=== PATIENT | female | born 1995 | race African-American/Black ===

== ENCOUNTER 2016-07-13 21:31 | Emergency (ER) | payer MEDICAID ==
--- NOTE | 2016-07-13 21:55 | ER Document Report ---
ED Medical Screen (RME) - General Stated Complaint: STOMACH PAIN Time seen by provider: 21:54 Mode of Arrival: Ambulatory Information source: Patient Notes: 21-year-old female complaining of low pelvic pain for 2 months. She developed urinary frequency and pain with urination for 2 days. No vaginal discharge or odor. No history of STDs. New sexual partner for 2 months. - Related Data Allergies/Adverse Reactions: latex [Latex] Allergy (Verified 09/09/11 23:30) Past Medical History - Immunizations Hx Diphtheria, Pertussis, Tetanus Vaccination: Yes Physical Exam - Vital signs Vitals: Temp Pulse Resp BP Pulse Ox 98.4 F 93 16 117/60 98 07/13/16 21:34 07/13/16 21:34 07/13/16 21:34 07/13/16 21:34 07/13/16 21:34 Course - Vital Signs Vital signs: Temp Pulse Resp BP Pulse Ox 98.4 F 93 16 117/60 98 07/13/16 21:34 07/13/16 21:34 07/13/16 21:34 07/13/16 21:34 07/13/16 21:34
[2016-07-13 22:23] LABS: AMORPHOUS SEDIMENT,URINE TRACE /HPF; APPEARANCE,URINE SLIGHTLY-CLOUDY; BILIRUBIN,URINE NEGATIVE (NEGATIVE); GLUCOSE, URINE NEGATIVE (NEGATIVE); KETONES,URINE NEGATIVE (NEGATIVE); LEUKOCYTE ESTERASE,URINE SMALL (NEGATIVE); NITRITE,URINE NEGATIVE (NEGATIVE); PROTEIN,URINE NEGATIVE (NEGATIVE); URINE SPECIFIC GRAVITY 1.018; UROBILINOGEN,URINE NEGATIVE mg/dL (<2.0)
[2016-07-13 23:08] LABS: ABSOLUTE EOSINOPHILS # (AUTO) 0.1 10^3/uL (0.0-0.6); ABSOLUTE LYMPHOCYTES (AUTO) 2.7 10^3/uL (0.5-4.7); ABSOLUTE MONOCYTES (AUTO) 0.5 10^3/uL (0.1-1.4); ABSOLUTE NEUT (AUTO) 6.2 10^3/uL (1.7-8.2); BASOPHILS % (AUTO) 0.4 % (0-2); EOSINOPHILS % (AUTO) 0.8 % (0-6); HEMATOCRIT 40.3 % (36.0-47.0); HEMOGLOBIN 13.2 g/dL (12.0-15.5); HGB HCT DIFFERENCE -0.7; LYMPHOCYTES % (AUTO) 27.9 % (13-45); MEAN CORPUSCULAR HEMOGLOBIN 31.4 pg (27.0-33.4); MEAN CORPUSCULAR HGB CONC 32.8 g/dL (32.0-36.0); MEAN CORPUSCULAR VOLUME 96 fl (80-97); MONOCYTES % (AUTO) 5.4 % (3-13); RED BLOOD COUNT 4.21 10^6/uL (3.72-5.28); RED CELL DISTRIBUTION WIDTH 13.3 % (11.5-14.0); SEGMENTED NEUTROPHILS % (AUTO) 65.5 % (42-78); WHITE BLOOD COUNT 9.5 10^3/uL (4.0-10.5)
[2016-07-13 23:25] LABS: ALANINE AMINOTRANSFERASE 26 U/L (9-52); ALBUMIN 4.4 g/dL (3.5-5.0); ALKALINE PHOSPHATASE 86 U/L (38-126); ANION GAP 11 (5-19); ASPARTATE AMINO TRANSFERASE 24 U/L (14-36); BILIRUBIN,TOTAL 0.5 mg/dL (0.2-1.3); BLOOD UREA NITROGEN 8 mg/dL (7-20); CARBON DIOXIDE 25 mmol/L (22-30); CHLORIDE 105 mmol/L (98-107); CREATININE RESULT 0.63 mg/dL (0.52-1.25); GLUCOSE 98 mg/dL (75-110); POTASSIUM 4.1 mmol/L (3.6-5.0); TOTAL PROTEIN 7.1 g/dL (6.3-8.2)
--- NOTE | 2016-07-14 00:22 | ER Document Report ---
ED General - General Chief Complaint: Lower Abdominal Pain Stated Complaint: STOMACH PAIN Mode of Arrival: Ambulatory Notes: Patient is a 21 year old female presents with complaints of abdominal pain. She says it's mild lower abdominal pains that have been ongoing for 2 months. She's had a new sexual partner last 2 months. No abnormal discharge. Some dysuria in the last 2 days. No fevers. No vomiting. No diarrhea. No other complaints at this time. She is otherwise healthy. TRAVEL OUTSIDE OF THE [place] IN LAST 30 DAYS: No - Related Data Allergies/Adverse Reactions: latex [Latex] Allergy (Verified 09/09/11 23:30) Past Medical History - General Information source: Patient - Social History Smoking Status: Unknown if Ever Smoked Frequency of alcohol use: None Drug Abuse: None Family History: Reviewed & Not Pertinent Patient has suicidal ideation: No Patient has homicidal ideation: No Renal/ Medical History: Denies: Hx Peritoneal Dialysis - Immunizations Hx Diphtheria, Pertussis, Tetanus Vaccination: Yes Review of Systems - Review of Systems Notes: My Normal Review Basic REVIEW OF SYSTEMS: CONSTITUTIONAL : Denies fever, chills, or sweats. Denies recent illness. CARDIOVASCULAR: Denies chest pain. RESPIRATORY: Denies cough, cold, or chest congestion. Denies shortness of breath, difficulty breathing, or wheezing. GASTROINTESTINAL: Mild lower abdominal pain. Denies nausea, vomiting, or diarrhea. Denies constipation. Last BM: GENITOURINARY: Denies difficulty urinating, painful urination, burning, frequency, or blood in urine. FEMALE GENITOURINARY: Denies vaginal bleeding, abnormal or irregular periods. MUSCULOSKELETAL: Denies neck or back pain or joint pain or swelling. SKIN: Denies rash or skin lesions. NEUROLOGICAL: Denies altered mental status or loss of consciousness. Denies headache. Denies weakness or paralysis or loss of use of either side. Denies problems with gait or speech. Denies sensory or motor loss. ALL OTHER SYSTEMS REVIEWED AND NEGATIVE. Physical Exam - Vital signs Vitals: Temp Pulse Resp BP Pulse Ox 98.4 F 93 16 117/60 98 07/13/16 21:34 07/13/16 21:34 07/13/16 21:34 07/13/16 21:34 07/13/16 21:34 - Notes Notes: General Appearance: Well nourished, alert, cooperative, no acute distress, no obvious discomfort. Vitals: reviewed, See vital signs table. Head: no swelling or tenderness to the head Eyes: PERRL, EOMI, Conjuctiva clear Mouth: No decreasd moisture Neck: Supple, no neck tenderness, No thyromegaly Lungs: No wheezing, No rales, No rhonci, No accessory muscle use, good air exchange bilaterally. Heart: Normal rate, Regular rythm, No murmur, no rub Abdomen: Normal BS, soft, No rigidity, No reproducible abdominal tenderness to palpation, No guarding, no rebound, no abdominal masses, no organomegaly Extremities: strength 5/5 in all extremities, good pulses in all extremities, no swelling or tenderness in the extremities, no edema. Skin: warm, dry, appropriate color, no rash Neuro: speech clear, oriented x 3, normal affect, responds appropriately to questions. Course - Vital Signs Vital signs: Temp Pulse Resp BP Pulse Ox 98.4 F 93 16 117/60 98 07/13/16 21:53 07/13/16 21:53 07/13/16 21:53 07/13/16 21:53 07/13/16 21:53 - Laboratory Result Diagrams: 07/13/16 22:53 07/13/16 22:53 Laboratory results interpreted by me: 07/13/16 07/13/16 22:00 22:00 Ur Leukocyte Esterase SMALL H Chlamydia DNA (PCR) DETECTED H - Transfer of Care Notes: 07/14/16 01:29 Patient's culture today come back positive for chlamydia. Patient will be discharged. She is in no pain in no distress and exam. Feel she is safe to be discharged home. I encourage her to contact her sexual partner and make him aware of the positive test for that he can also be tested and treated. She encouraged return to ER if she has fevers, recurrent pain, or feels unwell. Patient agrees with plan will be discharged home. Dictation of this chart was performed using voice recognition software; therefore, there may be some unintended grammatical errors. Discharge - Discharge Clinical Impression: Chlamydia, Cervicitis Condition: Good Disposition: HOME, SELF-CARE Additional Instructions: Chlamydia You have a chlamydia infection. Chlamydia is a germ that grows inside the cells of the mucous membranes. It often infects the eyes, urethra, and fallopian tubes. It can cause chronic pain and scar tissue if untreated. Antibiotics are used to treat chlamydia. It's important to take all the medicine even if there are no symptoms. Use condoms to prevent spread of the infection. Because this infection can spread by sexual contact, it's important that your sexual partner be checked before resuming sexual relations. A positive test for chlamydia has to be reported to the health department. Call the doctor or return at once if you develop increasing fever, rash, severe pelvic pain, vaginal bleeding (other than your period), or problems with your bladder or bowels. Forms: Return to Work
[2016-07-14 00:24] LABS: CHLAM PCR DETECTED (NOT DETECT)
[2016-07-14] MEDS ORDERED: AZITHROMYCIN 250 MG TABLET PO ONE (01:27)
[2016-07-14] MEDS ORDERED: CEFTRIAXONE INJ 250 MG VIAL IM ONE (01:28)
[2016-07-14] MEDS ORDERED: LIDOCAINE 1% INJ-PF (10 MG/ML) 30 ML SDV INFIL ONE (01:28)
[2016-07-14 05:38] VITALS: BP 112/57
== END 2016-07-14 02:50 | disposition home or self-care (01) ==
LOC: ER 21:31 → EEVIPCON 21:31 → ER 07-14 02:50
DX: R10.30 Lower abdominal pain, unspecified (principal); R10.9 Unspecified abdominal pain; R30.0 Dysuria; A74.9 Chlamydial infection, unspecified; N72 Inflammatory disease of cervix uteri
CPT/HCPCS: 99284; 96372; 36415; 84703; 85025; 80053; 81001; 87491; 87591; Q0144; J3490; J0696

== ENCOUNTER 2016-11-21 19:23 | Emergency (ER) | payer MEDICAID ==
--- NOTE | 2016-11-21 21:40 | ER Document Report ---
ED Medical Screen (RME) - General Chief Complaint: Dizziness Stated Complaint: DIZZINESS Time Seen by Provider: 11/21/16 21:37 Notes: Patient is a 8-week 21-year-old female presents emergency department complaining of epigastric stabbing pain that started earlier today. She states that she has not had an ultrasound confirming her . OB is with health department but will be [facility] with [facility]. She admits to nausea with vomiting but denies any diarrhea or constipation fevers or chills, vaginal bleeding, spotting, pain, pelvic pain, pyuria. She does admit to urinary hesitancy and frequency that started today. Otherwise healthy female. I have greeted and performed a rapid initial assessment of this patient. A comprehensive ED assessment and evaluation of the patient, analysis of test results and completion of the medical decision making process will be conducted by additional ED providers. TRAVEL OUTSIDE OF THE [place] IN LAST 30 DAYS: No - Related Data Allergies/Adverse Reactions: latex [Latex] Allergy (Verified 09/09/11 23:30) Past Medical History Renal/ Medical History: Denies: Hx Peritoneal Dialysis - Immunizations Hx Diphtheria, Pertussis, Tetanus Vaccination: Yes Physical Exam - Vital signs Vitals: Temp Pulse Resp BP Pulse Ox 98.2 F 87 18 134/64 H 100 11/21/16 19:50 11/21/16 19:50 11/21/16 19:50 11/21/16 19:50 11/21/16 19:50 - General General appearance: Appears well, Alert In distress: None - Respiratory Respiratory status: No respiratory distress Chest status: Nontender Breath sounds: Normal Chest palpation: Normal - Cardiovascular Rhythm: Regular Heart sounds: Normal auscultation Murmur: No Pulses: Normal: Radial - Abdominal Inspection: Normal Distension: No distension Bowel sounds: Normal Tenderness: Nontender Course - Vital Signs Vital signs: Temp Pulse Resp BP Pulse Ox 98.2 F 87 18 134/64 H 100 11/21/16 19:50 11/21/16 19:50 11/21/16 19:50 11/21/16 19:50 11/21/16 19:50
[2016-11-21 22:14] LABS: AMORPHOUS SEDIMENT,URINE 1+ /HPF; APPEARANCE,URINE CLOUDY; BILIRUBIN,URINE NEGATIVE (NEGATIVE); GLUCOSE, URINE NEGATIVE (NEGATIVE); KETONES,URINE NEGATIVE (NEGATIVE); LEUKOCYTE ESTERASE,URINE TRACE (NEGATIVE); NITRITE,URINE NEGATIVE (NEGATIVE); PROTEIN,URINE NEGATIVE (NEGATIVE); URINE SPECIFIC GRAVITY 1.028
[2016-11-21 22:22] LABS: ANION GAP 13 (5-19); BLOOD UREA NITROGEN 11 mg/dL (7-20); CARBON DIOXIDE 24 mmol/L (22-30); CHLORIDE 101 mmol/L (98-107); CREATININE RESULT 0.56 mg/dL (0.52-1.25); GLUCOSE 96 mg/dL (75-110); LIPASE 107.6 U/L (23-300); POTASSIUM 4.3 mmol/L (3.6-5.0); SODIUM 138.3 mmol/L (137-145)
[2016-11-22 01:00] LABS: ADD ON TESTING BLD IN LAB ACKNOWLEDGE
--- NOTE | 2016-11-22 01:33 | RADIOLOGY REPORT (SQ) ---
EXAM DESCRIPTION: U/S OB TRANSVAGINAL W/O DOP COMPLETED DATE/TIME: 11/22/2016 1:12 am REASON FOR STUDY: , lightheadedness COMPARISON: None. TECHNIQUE: Transvaginal grayscale images acquired of the pelvis. Additional selected color Doppler i mages recorded. All images stored on PACs. bHCG: Pending. LIMITATIONS: None. FINDINGS: FETUS: Living intrauterine . EGA: 8 weeks 3 days NIRANJAN: 07/01/2017 FHR: 169 beats per minute. SUBCHORIONIC BLEED: No SIZE OF BLEED: Not applicable. UTERUS: Measures 9.9 x 6.4 x 6.1 cm. No focal myometrial mass was noted. CERVICAL LENGTH: 2.5 cm. Closed. RIGHT ADNEXA: The right ovary measures 3.2 x 2.5 x 2.3 cm. Flow by Doppler was shown to the right ov zee. There is a 2.7 hypoechoic area at the right ovary, may represent a corpus luteum cyst. LEFT ADNEXA: The left ovary measures 4.9 x 5.8 x 3.1 cm. Flow by Doppler was shown to the left ovary . There is a 4.8 cm cystic area with internal echoes at the left ovary, appearance suggestive of a h emorrhagic cyst. FREE FLUID: Trace free fluid at the right adnexa. IMPRESSION: LIVING INTRAUTERINE . EGA 8 WEEKS 3 DAYS. 4.8 CM HEMORRHAGIC CYST AT THE LEFT OVARY. Trimester of : First - 0 to 13 weeks. TECHNICAL DOCUMENTATION: JOB ID: [id number] 2010 [employer]- All Rights Reserved
--- NOTE | 2016-11-22 02:07 | ER Document Report ---
ED General - General Chief Complaint: Dizziness Stated Complaint: DIZZINESS Time Seen by Provider: 11/21/16 21:37 Notes: The patient is a 21-year-old female, 8weeks by LMP, with 5 hours of slight lightheadedness that is resolving. She has not followed up with OB and has not had an ultrasound to confirm intrauterine . Has not been drinking much fluids. She denies abdominal pain, nausea, vomiting, vaginal bleeding, vaginal discharge, syncope, chest pain or shortness of breath TRAVEL OUTSIDE OF THE [place] IN LAST 30 DAYS: No - Related Data Allergies/Adverse Reactions: latex [Latex] Allergy (Verified 09/09/11 23:30) Past Medical History - General Information source: Patient - Social History Smoking Status: Unknown if Ever Smoked Chew tobacco use (# tins/day): No Frequency of alcohol use: None Drug Abuse: None Family History: Reviewed & Not Pertinent Patient has suicidal ideation: No Patient has homicidal ideation: No Renal/ Medical History: Denies: Hx Peritoneal Dialysis - Immunizations Hx Diphtheria, Pertussis, Tetanus Vaccination: Yes Review of Systems - Review of Systems Notes: REVIEW OF SYSTEMS: CONSTITUTIONAL: -fevers, -chills EENT: -eye pain, -difficulty swallowing, -nasal congestion CARDIOVASCULAR:-chest pain, -syncope, +lightheadedness RESPIRATORY: -cough, -SOB GASTROINTESTINAL: -abdominal pain, - nausea, -vomiting, -diarrhea GENITOURINARY: -dysuria, -hematuria MUSCULOSKELETAL: -back pain, -neck pain SKIN: -rash or skin lesions. HEMATOLOGIC: -easy bruising or bleeding. LYMPHATIC: -swollen, enlarged glands. NEUROLOGICAL: -altered mental status or loss of consciousness, -headache, - neurologic symptoms PSYCHIATRIC: -anxiety, -depression. ALL OTHER SYSTEMS REVIEWED AND NEGATIVE. Physical Exam - Vital signs Vitals: Temp Pulse Resp BP Pulse Ox 98.2 F 87 18 134/64 H 100 11/21/16 19:50 11/21/16 19:50 11/21/16 19:50 11/21/16 19:50 11/21/16 19:50 - Notes Notes: PHYSICAL EXAMINATION: GENERAL: Well-appearing, well-nourished and in no acute distress. HEAD: Atraumatic, normocephalic. EYES: Pupils equal round and reactive to light, extraocular movements intact, sclera anicteric, conjunctiva are normal. ENT: nares patent, oropharynx clear without exudates. Moist mucous membranes. NECK: Normal range of motion, supple without lymphadenopathy LUNGS: Breath sounds clear to auscultation bilaterally and equal. No wheezes rales or rhonchi. HEART: Regular rate and rhythm without murmurs ABDOMEN: Soft, nontender, normoactive bowel sounds. No guarding, no rebound. No masses appreciated. EXTREMITIES: Normal range of motion, no pitting or edema. No cyanosis. NEUROLOGICAL: Cranial nerves grossly intact. Normal speech, normal gait. Normal sensory and motor exams. PSYCH: Normal mood, normal affect. SKIN: Warm, Dry, normal turgor, no rashes or lesions noted. Course - Re-evaluation Re-evalutation: Ultrasound confirms intrauterine with 8 weeks 3 days with a normal heart rate. She is not having orthostatic symptoms. She is PERC negative. Instructed her to drink plenty of fluids and follow-up with the OB. Given strict return precautions and she understands - Vital Signs Vital signs: Temp Pulse Resp BP Pulse Ox 98.2 F 88 17 127/69 H 99 11/21/16 19:50 11/22/16 02:45 11/22/16 02:45 11/22/16 02:45 11/22/16 02:45 - Laboratory Result Diagrams: 11/21/16 21:50 Laboratory results interpreted by me: 11/21/16 11/21/16 11/21/16 21:50 21:50 21:50 Serum HCG, Qual POSITIVE H Beta HCG, Quant 715883.00 H Urine Urobilinogen 4.0 H Ur Leukocyte Esterase TRACE H - Diagnostic Test Radiology reviewed: Image reviewed, Reports reviewed Radiology results interpreted by me: US: [id number] IUP Discharge - Discharge Clinical Impression: Lightheadedness Qualifiers: Weeks of gestation: 8 weeks Qualified Code(s): Z3A.08 - 8 weeks gestation of Condition: Good Disposition: HOME, SELF-CARE Additional Instructions: DIZZINESS: Under normal circumstances, your sense of balance is controlled by a number of signals that your brain receives from several locations: Eyes. No matter what your position, visual signals help you determine where your body is in space and how it's moving. Sensory nerves. These are in your skin, muscles and joints. Sensory nerves send messages to your brain about body movements and positions. Inner ear. The organ of balance in your inner ear is the vestibular labyrinth. It includes loop-shaped structures (semicircular canals) that contain fluid and fine, hair-like sensors that monitor the rotation of your head. Near the semicircular canals are the utricle and saccule, which contain tiny particles called otoconia ([id number]). These particles are attached to sensors that help detect gravity and [id number] motion. Good balance depends on at least two of these three sensory systems working well. For instance, closing your eyes while washing your hair in the shower doesn't mean you'll lose your balance. Signals from your inner ear and sensory nerves help keep you upright. However, if your central nervous system can't process signals from all of these locations, if the messages are contradictory, or if the sensory systems aren't functioning properly, you may experience loss of balance. Dizziness may have a number of potential causes. These may include: Vertigo Vertigo - the false sense of motion or spinning - is the most common symptom of dizziness. Sitting up or moving around may make it worse. Sometimes vertigo is severe enough to cause nausea and vomiting. Vertigo usually results from a problem with the nerves and the structures of the balance mechanism in your inner ear (vestibular system), which sense movement and changes in your head position. Abnormal rhythmic eye movements ( nystagmus) almost always accompany vertigo. Causes of vertigo may include: Benign paroxysmal positional vertigo (BPPV). BPPV involves intense, brief episodes of vertigo associated with a change in the position of your head, often when you turn over in bed or sit up in the morning. It occurs when normal calcium carbonate crystals (otoconia) break loose and fall into the wrong part of the canals in your inner ear. When these particles shift, they stimulate sensors in your ear, producing an episode of vertigo. Doctors don't know what causes BPPV, but it may be a natural result of aging. Trauma to your head also may lead to BPPV. Inflammation in the inner ear. Signs and symptoms of inflammation of the inner ear (acute vestibular neuronitis or labyrinthitis) include sudden, intense vertigo that may persist for several days, with nausea and vomiting. It can be incapacitating, requiring bed rest to minimize the signs and symptoms. Fortunately, vestibular neuronitis generally subsides and clears up on its own. Recovery time may be shorter with vestibular rehabilitation exercises. Although the cause of this condition is unknown, it may be a viral infection. Meniere's disease. This disease involves the excessive buildup of fluid in your inner ear. It may affect adults at any age and is characterized by sudden episodes of vertigo lasting 30 minutes to an hour or longer. Other signs and symptoms include the feeling of fullness in your ear, buzzing or ringing in your ear (tinnitus), and fluctuating hearing loss. The cause of Meniere's disease is unknown. Vestibular migraine. People who experience a vestibular migraine are very sensitive to motion. Dizziness and vertigo caused by a vestibular migraine may be triggered by turning your head quickly, being in a crowded or confusing place , driving or riding in a vehicle, or even watching movement on TV. A vestibular migraine may cause feelings of imbalance or unsteadiness, hearing loss, "muffled " hearing, or ringing in your ears (tinnitus). For most people with a vestibular migraine, vertigo doesn't necessarily happen at the same time as the headache. Instead, typical migraine triggers may lead to vertigo without an actual migraine. Attacks of migrainous vertigo can last from a few minutes to several days. Acoustic neuroma. An acoustic neuroma (schwannoma) is a noncancerous (benign ) growth on the acoustic nerve, which connects the inner ear to your brain. Signs and symptoms of an acoustic neuroma may include dizziness, loss of balance , hearing loss and tinnitus. Rapid changes in motion. Riding on roller coasters or in boats, cars or even airplanes may on occasion make you dizzy. Other causes. Rarely, vertigo can be a symptom of a more serious neurological problem such as a stroke, brain hemorrhage or multiple sclerosis. Feeling of faintness (presyncope) "Presyncope" is the medical term for feeling faint and lightheaded without losing consciousness. Sometimes nausea, pale skin and a sense of dizziness accompany a feeling of faintness. Causes of presyncope include: Drop in blood pressure (orthostatic hypotension). A dramatic drop in your systolic blood pressure - the higher number in your blood pressure reading - may result in lightheadedness or a feeling of faintness. It can occur after sitting up or standing too quickly. Inadequate output of blood from the heart. Conditions such as partially blocked arteries (atherosclerosis), disease of the heart muscle (cardiomyopathy) , abnormal heart rhythm (arrhythmia) or a decrease in blood volume may cause inadequate blood flow from your heart. Loss of balance (disequilibrium) Disequilibrium is the loss of balance or the feeling of unsteadiness when you walk. Causes may include: Inner ear (vestibular) problems. Abnormalities with your inner ear can cause you to feel like you are floating, have a heavy head or are unsteady in the dark. Sensory disorders. Failing vision and nerve damage in your legs (peripheral neuropathy) are common in older adultsand may result in difficulty maintaining your balance. Joint and muscle problems. Muscle weakness and osteoarthritis - the type of arthritis that involves wear and tear of your joints - can contribute to loss of balance when it involves your weight-bearing joints. Medications. Loss of balance can be a side effect of certain medications, such as anti-seizure drugs, sedatives and tranquilizers. Lightheadedness and other kinds of dizziness Feeling lightheaded is the feeling of being "spaced out" or having the sensation of spinning inside your head. It can also give you the sensation that if your lightheadedness worsens, you might lose consciousness. Causes may include: Inner ear disorders. These abnormalities of your inner ear can lead to illusions of motion and make you feel like you're floating. Anxiety disorders. Certain anxiety disorders, such as panic attacks and a fear of leaving home or being in large, open spaces (agoraphobia), may cause lightheadedness. Hyperventilation. Abnormally rapid breathing that often accompanies anxiety disorders may make you feel lightheaded. NORMAL EXAM AND WORKUP: At this time, your examination and workup show no significant abnormality. No significant abnormal physical findings were noted. All laboratory, EKG, and imaging (x-ray, CT scans, ultrasound) studies that were ordered show no significant abnormality. Although your examination and all studies that were ordered showed no significant abnormal finding, there are no examinations and no studies that are 100% accurate. There is always the possibility that some abnormality could exist and not be detected with physical examination or within the limits and capabilities of laboratory and other studies. You should return or follow up as you were instructed on your visit today for further evaluation if your symptoms do not resolve. FOLLOW-UP CARE: If you have been referred to a physician for follow-up care, call the physician s office for an appointment as you were instructed or within the next two days. If you experience worsening or a significant change in your symptoms, notify the physician immediately or return to the Emergency Department at any time for re-evaluation. Referrals: ALEXIS MAJANO MD [ACTIVE STAFF] - Follow up as needed
[2016-11-22 02:46] VITALS: BP 127/69
== END 2016-11-22 02:44 | disposition home or self-care (01) ==
LOC: ER 19:23
DX: O26.91 Pregnancy related conditions, unspecified, first trimester (principal); R42 Dizziness and giddiness; Z3A.08 8 weeks gestation of pregnancy; Z91.040 Latex allergy status
CPT/HCPCS: 36415; 76817; 80048; 81001; 83690; 84702; 84703; 99284

== ENCOUNTER 2016-12-22 14:35 | Emergency (ER) | payer MEDICAID ==
[2016-12-22 14:39] VITALS: BP 128/62
--- NOTE | 2016-12-22 15:05 | ER Document Report ---
ED Dizziness/Weakness - General Chief Complaint: Dizziness Stated Complaint: WEAKNESS Time Seen by Provider: 12/22/16 14:54 Notes: The patient is a 21-year-old female, 12 weeks , presents after brief episode of lightheadedness yesterday. The episode quickly resolved. She has had an ultrasound to confirm intrauterine at the health department during this . She is having abdominal cramping and dysuria , but denies abdominal pain, vertigo, vaginal bleeding, nausea, vomiting, weakness, shortness of breath, chest pain, leg swelling, blurry vision or syncope. TRAVEL OUTSIDE OF THE [place] IN LAST 30 DAYS: No - Related Data Allergies/Adverse Reactions: latex [Latex] Allergy (Verified 12/22/16 14:38) Past Medical History - General Information source: Patient - Social History Smoking Status: Never Smoker Chew tobacco use (# tins/day): No Frequency of alcohol use: None Drug Abuse: None Family History: Reviewed & Not Pertinent Patient has suicidal ideation: No Patient has homicidal ideation: No Renal/ Medical History: Denies: Hx Peritoneal Dialysis Surgical Hx: Negative - Immunizations Hx Diphtheria, Pertussis, Tetanus Vaccination: Yes Review of Systems - Review of Systems Notes: REVIEW OF SYSTEMS: CONSTITUTIONAL: -fevers, -chills EENT: -eye pain, -difficulty swallowing, -nasal congestion CARDIOVASCULAR:-chest pain, -syncope. RESPIRATORY: -cough, -SOB GASTROINTESTINAL: -abdominal pain, - nausea, -vomiting, -diarrhea GENITOURINARY: -dysuria, -hematuria MUSCULOSKELETAL: -back pain, -neck pain SKIN: -rash or skin lesions. HEMATOLOGIC: -easy bruising or bleeding. LYMPHATIC: -swollen, enlarged glands. NEUROLOGICAL: -altered mental status or loss of consciousness, -headache, - neurologic symptoms PSYCHIATRIC: -anxiety, -depression. ALL OTHER SYSTEMS REVIEWED AND NEGATIVE. Physical Exam - Vital signs Vitals: Temp Pulse Resp BP Pulse Ox 98.3 F 97 18 128/62 H 98 12/22/16 14:38 12/22/16 14:38 12/22/16 14:38 12/22/16 14:38 12/22/16 14:38 - Notes Notes: PHYSICAL EXAMINATION: GENERAL: Well-appearing, well-nourished and in no acute distress. HEAD: Atraumatic, normocephalic. EYES: Pupils equal round and reactive to light, extraocular movements intact, sclera anicteric, conjunctiva are normal. ENT: nares patent, oropharynx clear without exudates. Moist mucous membranes. NECK: Normal range of motion, supple without lymphadenopathy LUNGS: Breath sounds clear to auscultation bilaterally and equal. No wheezes rales or rhonchi. HEART: Regular rate and rhythm without murmurs ABDOMEN: Soft, nontender, normoactive bowel sounds. No guarding, no rebound. No masses appreciated. EXTREMITIES: Normal range of motion, no pitting or edema. No cyanosis. NEUROLOGICAL: Cranial nerves grossly intact. Normal speech, normal gait. Normal sensory and motor exams. PSYCH: Normal mood, normal affect. SKIN: Warm, Dry, normal turgor, no rashes or lesions noted. Course - Re-evaluation Re-evalutation: Patient appears well. Her vital signs are normal and she is having no symptoms. EKG did not show any arrhythmias or evidence of WPW, Brugada or long QT syndrome. Her ultrasound shows a single IUP with normal heart rate and movements. She does have a urinary tract infection, so will treat with Macrobid. Considered PE, but without shortness of breath, chest pain, hypoxia or tachypnea, this is less common at this time. Will have her follow-up with the OB for further evaluation and treatment. - Vital Signs Vital signs: Temp Pulse Resp BP Pulse Ox 98.3 F 97 18 128/62 H 98 12/22/16 14:38 12/22/16 14:38 12/22/16 14:38 12/22/16 14:38 12/22/16 14:38 - Laboratory Laboratory results interpreted by me: 12/22/16 15:05 Urine Protein 30 H Urine Ketones 20 H Urine Urobilinogen 2.0 H Ur Leukocyte Esterase LARGE H - EKG Interpretation by Al EKG shows normal: Sinus rhythm, Anderson, Intervals, QRS Complexes, ST-T Waves Rate: Normal Procedures - Ultrasound/Bedside Ultrasound/Bedside Time completed: 15:37 Ultrasound: Other - OB US Notes: Single IUP with age consistent with dates. FHR 152. Discharge - Discharge Clinical Impression: Lightheadedness UTI (urinary tract infection) Qualifiers: Urinary tract infection type: acute cystitis Hematuria presence: without hematuria Qualified Code(s): N30.00 - Acute cystitis without hematuria Qualifiers: Weeks of gestation: 12 weeks Qualified Code(s): Z3A.12 - 12 weeks gestation of Condition: Stable Disposition: HOME, SELF-CARE Additional Instructions: Drink plenty of water and take the full course of antibiotics. Follow-up with the OB. URINARY TRACT INFECTION: Your evaluation indicates that you have a urinary tract infection. This is due to germs growing in the bladder. This is a common problem. This infection usually responds quickly to antibiotics. Your antibiotic should be taken exactly as prescribed. Drink plenty of fluids -- three to four quarts a day. Occasionally, a bladder anesthetic will be prescribed to help stop the feeling of urgency until the antibiotic has a chance to clear the infection. This may cause your urine to be dark orange. Certain urine infections require a culture. If the doctor obtained a culture, the results will be back in two days. You should call to see if a change in treatment is needed. A repeat urinalysis after you finish treatment is often recommended. The physician will let you know if further testing is required. Call the doctor if you develop fever, chills, flank pain, inability to urinate, or blood in the urine. ANTIBIOTIC THERAPY: You have been given an antibiotic prescription. It's important that you take all the medication, unless instructed otherwise by your physician. Failure to complete the entire course can result in relapse of your condition. Common side effects of antibiotics include nausea, intestinal cramping, or diarrhea. Women may develop vaginal yeast infections, and babies can get yeast (thrush) in the mouth following the use of antibiotics. Contact your physician if you develop significant side effects from this medication. Allergy to this antibiotic can result in hives, wheezing, faintness, or itching. If symptoms of allergy occur, stop the medication and call the doctor. NITROFURANTOIN (MACRODANTIN, MACROBID): You have received a prescription for nitrofurantoin (Macrodantin). This antibiotic is used for urinary tract infections. Women who are or nursing should notify the physician before taking this medicine. If you have ever had a problem caused by this medication in the past, be sure the physician is aware of it. Common side effects of this medicine include nausea, vomiting, or decreased appetite. Notify your physician if these side effects become severe. Immediately stop this medicine and call the physician if you develop cough , shortness of breath, chest pain, weakness, jaundice (yellow color of the skin and whites of the eyes), or a skin rash. FOLLOW-UP CARE: If you have been referred to a physician for follow-up care, call the physician s office for an appointment as you were instructed or within the next two days. If you experience worsening or a significant change in your symptoms, notify the physician immediately or return to the Emergency Department at any time for re-evaluation. Prescriptions: Nitrofurantoin/Nitrofuran Mac [Macrobid 100 mg Capsule] 1 tab PO BID #10 capsule Referrals: EVELIO COOPER MD [ACTIVE STAFF] - Follow up as needed
[2016-12-22 15:31] LABS: APPEARANCE,URINE CLOUDY; BILIRUBIN,URINE NEGATIVE (NEGATIVE); GLUCOSE, URINE NEGATIVE (NEGATIVE); KETONES,URINE 20 mg/dL (NEGATIVE); LEUKOCYTE ESTERASE,URINE LARGE (NEGATIVE); NITRITE,URINE NEGATIVE (NEGATIVE); PROTEIN,URINE 30 mg/dL (NEGATIVE); URINE SPECIFIC GRAVITY 1.026
--- NOTE | 2016-12-22 16:38 | EKG REPORT ---
SEVERITY:- NORMAL ECG - SINUS RHYTHM : Confirmed by: Joseluis Kan 22-Dec-2016 16:37:33
== END 2016-12-22 15:45 | disposition home or self-care (01) ==
LOC: ER 14:35
DX: O26.891 Other specified pregnancy related conditions, first trimester (principal); R42 Dizziness and giddiness; O23.11 Infections of bladder in pregnancy, first trimester; Z3A.12 12 weeks gestation of pregnancy
CPT/HCPCS: 81001; 93005; 93010; 99284

== ENCOUNTER 2017-01-11 20:20 | Emergency (ER) | payer MEDICAID ==
[2017-01-11 23:42] LABS: ABSOLUTE LYMPHOCYTES (AUTO) 1.8 10^3/uL (0.5-4.7); ABSOLUTE MONOCYTES (AUTO) 0.5 10^3/uL (0.1-1.4); ABSOLUTE NEUT (AUTO) 7.8 10^3/uL (1.7-8.2); BASOPHILS % (AUTO) 0.3 % (0-2); EOSINOPHILS % (AUTO) 0.4 % (0-6); HEMATOCRIT 39.8 % (36.0-47.0); HEMOGLOBIN 13.5 g/dL (12.0-15.5); HGB HCT DIFFERENCE 0.7; LYMPHOCYTES % (AUTO) 18.1 % (13-45); MEAN CORPUSCULAR HEMOGLOBIN 32.7 pg (27.0-33.4); MEAN CORPUSCULAR VOLUME 96 fl (80-97); MONOCYTES % (AUTO) 4.5 % (3-13); RED BLOOD COUNT 4.15 10^6/uL (3.72-5.28); SEGMENTED NEUTROPHILS % (AUTO) 76.7 % (42-78); WHITE BLOOD COUNT 10.1 10^3/uL (4.0-10.5)
[2017-01-11 23:51] LABS: APPEARANCE,URINE SLIGHTLY-CLOUDY; BILIRUBIN,URINE NEGATIVE (NEGATIVE); GLUCOSE, URINE 50 mg/dL (NEGATIVE); KETONES,URINE 80 mg/dL (NEGATIVE); LEUKOCYTE ESTERASE,URINE NEGATIVE (NEGATIVE); NITRITE,URINE NEGATIVE (NEGATIVE); PROTEIN,URINE 30 mg/dL (NEGATIVE); URINE SPECIFIC GRAVITY 1.029; UROBILINOGEN,URINE NEGATIVE mg/dL (<2.0)
[2017-01-12 00:08] LABS: ALANINE AMINOTRANSFERASE 26 U/L (9-52); ALBUMIN 4.3 g/dL (3.5-5.0); ALKALINE PHOSPHATASE 69 U/L (38-126); ANION GAP 12 (5-19); ASPARTATE AMINO TRANSFERASE 19 U/L (14-36); BILIRUBIN,DIRECT 0.2 mg/dL (0.0-0.4); BILIRUBIN,TOTAL 0.6 mg/dL (0.2-1.3); BLOOD UREA NITROGEN 5 mg/dL (7-20); CARBON DIOXIDE 22 mmol/L (22-30); CHLORIDE 105 mmol/L (98-107); CREATININE RESULT 0.42 mg/dL (0.52-1.25); GLUCOSE 92 mg/dL (75-110); SODIUM 138.9 mmol/L (137-145); TOTAL PROTEIN 7.7 g/dL (6.3-8.2)
--- NOTE | 2017-01-12 00:59 | ER Document Report ---
ED GI/ - General Chief Complaint: Vomiting Stated Complaint: VOMITING Time Seen by Provider: 01/12/17 00:39 Mode of Arrival: Ambulatory Information source: Patient TRAVEL OUTSIDE OF THE [place] IN LAST 30 DAYS: No - HPI Patient complains to provider of: Abdominal pain, Vomiting Onset: This morning Timing/Duration: Sudden Quality of pain: Achy Severity at maximum: Moderate Severity in ED: Moderate Pain Level: 2 Associated symptoms: Blood in emesis, Nausea Exacerbated by: Denies Relieved by: Denies Similar symptoms previously: Yes Recently seen / treated by doctor: Yes Notes: 01/12/17 06:17 Patient is a 21-year-old female who is approximately 15 weeks who presents to the emergency room complaining of vomiting this morning, she noted a small amount of blood in her vomit, she denies any diarrhea, no fever, no dysuria or hematuria, no sick contacts, no pelvic cramping, no vaginal bleeding or discharge, at time of my evaluation she reports feeling much better and has been able to tolerate p.o. intake - Related Data Allergies/Adverse Reactions: latex [Latex] Allergy (Verified 01/11/17 20:43) Past Medical History - General Information source: Patient - Social History Smoking Status: Unknown if Ever Smoked Family History: Reviewed & Not Pertinent Renal/ Medical History: Denies: Hx Peritoneal Dialysis - Immunizations Hx Diphtheria, Pertussis, Tetanus Vaccination: Yes Review of Systems - Review of Systems Constitutional: No symptoms reported EENT: No symptoms reported Cardiovascular: No symptoms reported Respiratory: No symptoms reported Gastrointestinal: See HPI Genitourinary: No symptoms reported Female Genitourinary: See HPI Musculoskeletal: No symptoms reported Skin: No symptoms reported Hematologic/Lymphatic: No symptoms reported Neurological/Psychological: No symptoms reported -: Yes All other systems reviewed and negative Physical Exam - Vital signs Vitals: Temp Pulse Resp BP Pulse Ox 98.0 F 94 18 107/62 100 01/11/17 20:43 01/11/17 20:43 01/11/17 20:43 01/11/17 20:43 01/11/17 20:43 Interpretation: Normal - General General appearance: Appears well, Alert - HEENT Head: Normocephalic, Atraumatic Eyes: Normal Pupils: PERRL - Respiratory Respiratory status: No respiratory distress Chest status: Nontender Breath sounds: Normal Chest palpation: Normal - Cardiovascular Rhythm: Regular Heart sounds: Normal auscultation Murmur: No - Abdominal Inspection: Normal Distension: No distension Bowel sounds: Normal Tenderness: Nontender Organomegaly: No organomegaly - Back Back: Normal, Nontender - Extremities General upper extremity: Normal inspection, Nontender, Normal color, Normal ROM , Normal temperature General lower extremity: Normal inspection, Nontender, Normal color, Normal ROM , Normal temperature, Normal weight bearing. No: Himanshu's sign - Neurological Neuro grossly intact: Yes Cognition: Normal Orientation: AAOx4 Vantage Coma Scale Eye Opening: Spontaneous Katie Coma Scale Verbal: Oriented Vantage Coma Scale Motor: Obeys Commands Vantage Coma Scale Total: 15 Speech: Normal Motor strength normal: LUE, RUE, LLE, RLE Sensory: Normal - Psychological Associated symptoms: Normal affect, Normal mood - Skin Skin Temperature: Warm Skin Moisture: Dry Skin Color: Normal Course - Re-evaluation Re-evalutation: 01/12/17 06:18 Laboratory findings unremarkable, physical exam findings unremarkable as well, patient was given a prescription for Zantac, advised to follow-up with her OB/ 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 in 2-3 days or return if symptoms worsen, heart tones were at 152 and adequate, patient acknowledges understanding and agreement with this plan - Vital Signs Vital signs: Temp Pulse Resp BP Pulse Ox 97.6 F 68 18 115/77 96 01/12/17 01:38 01/12/17 01:38 01/11/17 20:43 01/12/17 01:38 01/12/17 01:38 - Laboratory Result Diagrams: 01/11/17 23:30 01/11/17 23:30 Laboratory results interpreted by me: 01/11/17 01/11/17 23:30 23:30 BUN 5 L Creatinine 0.42 L Urine Protein 30 H Urine Glucose (UA) 50 H Urine Ketones 80 H Urine HCG, Qual POSITIVE H Discharge - Discharge Clinical Impression: Nausea and vomiting Qualifiers: Vomiting type: unspecified Vomiting Intractability: non-intractable Qualified Code(s): R11.2 - Nausea with vomiting, unspecified Disposition: HOME, SELF-CARE Instructions: Vomiting ([facility]), Gastritis ([facility]) Additional Instructions: Follow up with your primary care provider in one to 2 days. Return to the emergency room immediately if symptoms worsen or any additional concerns. Prescriptions: Ranitidine HCl [Zantac 150 mg Tablet] 150 mg PO BID #60 tablet Forms: Return to Work Referrals: EVELIO COOPER MD [Primary Care Provider] - Follow up as needed
[2017-01-12 01:40] VITALS: BP 115/77
== END 2017-01-12 01:38 | disposition home or self-care (01) ==
LOC: EEVIPCON 20:20 → ER 20:20
DX: O21.9 Vomiting of pregnancy, unspecified (principal); Z3A.15 15 weeks gestation of pregnancy
CPT/HCPCS: 36415; 80053; 81001; 81025; 85025; 99284

== ENCOUNTER 2017-02-16 16:21 | Outpatient (CLI) | payer MEDICAID ==
[2017-02-16 17:27] LABS: APPEARANCE,URINE CLOUDY; BILIRUBIN,URINE NEGATIVE (NEGATIVE); GLUCOSE, URINE NEGATIVE (NEGATIVE); KETONES,URINE NEGATIVE (NEGATIVE); LEUKOCYTE ESTERASE,URINE NEGATIVE (NEGATIVE); NITRITE,URINE NEGATIVE (NEGATIVE); PROTEIN,URINE NEGATIVE (NEGATIVE); UROBILINOGEN,URINE NEGATIVE mg/dL (<2.0)
[2017-02-16 17:41] LABS: URINE BARBITURATES SCREEN NEGATIVE; URINE METHADONE SCREEN NEGATIVE; URINE OPIATES LOW NEGATIVE; URINE PHENCYCLIDINE SCREEN NEGATIVE
[2017-02-17 06:54] LABS: CHLAM PCR NOT DETECTED (NOT DETECT)
== END 2017-02-16 20:50 | disposition home or self-care (01) ==
LOC: EDSTATUS 16:41 → LC 16:57
PROVIDERS: ATTEND Obstetrics & Gynecology
PROC: 4A1HXCZ Monitoring of Products of Conception, Cardiac Rate, External Approach (ICD-10-PCS; principal; 2017-02-16)
DX: Z36 Encounter for antenatal screening of mother (principal); Z3A.20 20 weeks gestation of pregnancy
CPT/HCPCS: 80307; 81001; 87210; 87491; 87591

== ENCOUNTER 2017-02-26 09:33 | Inpatient (IN) | payer MEDICAID ==
[2017-02-26 11:13] LABS: APPEARANCE,URINE SLIGHTLY-CLOUDY; BILIRUBIN,URINE NEGATIVE (NEGATIVE); GLUCOSE, URINE NEGATIVE (NEGATIVE); KETONES,URINE 80 mg/dL (NEGATIVE); LEUKOCYTE ESTERASE,URINE TRACE (NEGATIVE); NITRITE,URINE NEGATIVE (NEGATIVE); PROTEIN,URINE 30 mg/dL (NEGATIVE); URINE SPECIFIC GRAVITY 1.009
[2017-02-26 11:44] LABS: URINE BARBITURATES SCREEN NEGATIVE; URINE METHADONE SCREEN NEGATIVE; URINE OPIATES LOW NEGATIVE; URINE PHENCYCLIDINE SCREEN NEGATIVE
[2017-02-26] MEDS ORDERED: OXYCODONE HCL IR 5 MG TABLET PO PRN (12:45)
[2017-02-26] MEDS ORDERED: PROMETHAZINE HCL INJ 25 MG/1 ML VIAL IV PRN (12:45)
[2017-02-26 13:02] LABS: ABSOLUTE LYMPHOCYTES (AUTO) 1.1 10^3/uL (0.5-4.7); ABSOLUTE MONOCYTES (AUTO) 0.4 10^3/uL (0.1-1.4); BASOPHILS % (AUTO) 0.3 % (0-2); EOSINOPHILS % (AUTO) 0.2 % (0-6); HEMATOCRIT 37.3 % (36.0-47.0); HEMOGLOBIN 12.7 g/dL (12.0-15.5); HGB HCT DIFFERENCE 0.8; LYMPHOCYTES % (AUTO) 8.9 % (13-45); MEAN CORPUSCULAR HEMOGLOBIN 32.7 pg (27.0-33.4); MEAN CORPUSCULAR HGB CONC 34.1 g/dL (32.0-36.0); MEAN CORPUSCULAR VOLUME 96 fl (80-97); MONOCYTES % (AUTO) 3.4 % (3-13); RED BLOOD COUNT 3.88 10^6/uL (3.72-5.28); RED CELL DISTRIBUTION WIDTH 13.2 % (11.5-14.0); SEGMENTED NEUTROPHILS % (AUTO) 87.2 % (42-78); WHITE BLOOD COUNT 12.6 10^3/uL (4.0-10.5)
[2017-02-26 13:20] LABS: ANION GAP 9 (5-19); BLOOD UREA NITROGEN 4 mg/dL (7-20); CALCIUM 9.8 mg/dL (8.4-10.2); CARBON DIOXIDE 24 mmol/L (22-30); CHLORIDE 104 mmol/L (98-107); CREATININE RESULT 0.51 mg/dL (0.52-1.25); GLUCOSE 81 mg/dL (75-110); POTASSIUM 3.7 mmol/L (3.6-5.0); SODIUM 137.4 mmol/L (137-145)
[2017-02-26] MEDS ORDERED: OXYCODONE HCL IR 5 MG TABLET ONE (14:32)
[2017-02-26] MEDS: OXYCODONE HCL IR 5 MG TABLET PO PRN ×2 (14:33→20:21)
[2017-02-26] MEDS: RINGERS SOLUTION,LACTATED 1,000 ML IV PRN (16:46)
[2017-02-26] MEDS: CEFAZOLIN 2 GM/D5W RTU 2 GM/50 ML RTUPB IV SCH ×2 (16:47→22:46)
[2017-02-27] MEDS: OXYCODONE HCL IR 5 MG TABLET PO PRN ×3 (01:00→21:14)
[2017-02-27] MEDS: RINGERS SOLUTION,LACTATED 1,000 ML IV PRN ×3 (01:47→21:15)
[2017-02-27] MEDS: CEFAZOLIN 2 GM/D5W RTU 2 GM/50 ML RTUPB IV SCH ×3 (05:16→21:06)
[2017-02-27] MEDS ORDERED: DOCUSATE SODIUM 100 MG CAPSULE PO ONE (22:00)
--- NOTE | 2017-02-27 22:35 | PDOC PROGRESS REPORT ---
Subjective Subjective:: Pt still having CVA tenderness. No ctx's, vb or lof Reports good movement Physical Exam - Physical Exam Vital Signs: Temp Pulse Resp BP Pulse Ox 98.1 F 89 18 113/53 L 100 02/27/17 19:29 02/27/17 19:29 02/27/17 19:29 02/27/17 19:29 02/27/17 19:29 Intake & Output 02/26/17 02/27/17 02/28/17 06:59 06:59 06:59 Intake Total 850 Balance 850 Weight 84.277 kg General appearance: PRESENT: no acute distress, cooperative, well-developed GI/Abdominal exam: PRESENT: normal bowel sounds, tenderness - +CVA tenderness Result Laboratory Results: 02/26/17 12:48 02/26/17 12:48 02/26/17 10:49 Clean Catch Midstream Urine Culture - Final Group B Beta Streptococcus Mixed Urogenital Eloisa Assessment & Plan - Diagnosis (1) Qualifiers: Weeks of gestation: 22 weeks Qualified Code(s): Z3A.22 - 22 weeks gestation of Is this a current diagnosis for this admission?: Yes (2) Pyelonephritis Is this a current diagnosis for this admission?: Yes - Time Time Spent with patient: Less than 15 minutes Medications reviewed and adjusted accordingly: Yes Anticipated discharge: Home Within: within 48 hours - Will continue IV ABX plan d/c home tomorrow
[2017-02-28] MEDS: CEFAZOLIN 2 GM/D5W RTU 2 GM/50 ML RTUPB IV SCH ×2 (05:09→14:23)
[2017-02-28] MEDS: RINGERS SOLUTION,LACTATED 1,000 ML IV PRN (05:10)
[2017-02-28 08:13] VITALS: BP 113/60
[2017-02-28] MEDS ORDERED: DOCUSATE SODIUM 100 MG CAPSULE PO SCH (10:00)
--- NOTE | 2017-02-28 14:28 | PDOC PROGRESS REPORT ---
Subjective Progress Note for:: 02/28/17 Subjective:: Doing well today and ready to go home. Physical Exam - Physical Exam Vital Signs: Temp Pulse Resp BP Pulse Ox 97.8 F 87 16 113/60 100 02/28/17 07:45 02/28/17 07:45 02/28/17 07:45 02/28/17 07:45 02/28/17 07:45 Intake & Output 02/27/17 02/28/17 03/01/17 06:59 06:59 06:59 Intake Total 850 Output Total 400 Balance 850 -400 Weight 84.277 kg General appearance: PRESENT: no acute distress Head exam: PRESENT: atraumatic GI/Abdominal exam: PRESENT: normal bowel sounds, soft. ABSENT: distended, guarding, mass, organolmegaly, rebound, tenderness Result Laboratory Results: 02/26/17 12:48 02/26/17 12:48 Assessment & Plan - Diagnosis (1) Pyelonephritis Is this a current diagnosis for this admission?: Yes - Time Time Spent with patient: Less than 15 minutes Anticipated discharge: Home - followup at next visit
--- NOTE | 2017-02-28 14:39 | PDOC DISCHARGE SUMMARY ---
General - Admit/Disc Date/PCP Admission Date/Primary Care Provider: 02/26/17 12:44 EVELIO COOPER MD Pt admitted for IV antibiotics for pyelonephritis. Discharge Date: 02/28/17 - Discharge Diagnosis (1) Pyelonephritis Is this a current diagnosis for this admission?: Yes - Additional Information Discharge Diet: Regular Discharge Activity: Activity As Tolerated Home Medications: Pnv with Ca,No.72/Iron/FA [ Plus Tablet] 1 tab PO DAILY 07/09/13 Penicillin V Potassium 500 mg PO BID #20 tablet 02/28/17 History of Present Illness History of Present Illness: NANETTE JULIEN is a 21 year old female She has done well on IV antibiotics and no longer has symptoms or fever. The urine grew back group b strep. She will be sent home on penecillin. Hospital Course Hospital Course: She has done well on antibiotics. Her urine grew back group b strep. She will be sent home on penecillin. Physical Exam - Physical Exam Vital Signs: Temp Pulse Resp BP Pulse Ox 97.8 F 87 16 113/60 100 02/28/17 07:45 02/28/17 07:45 02/28/17 07:45 02/28/17 07:45 02/28/17 07:45 Intake & Output 02/27/17 02/28/17 03/01/17 06:59 06:59 06:59 Intake Total 850 Output Total 400 Balance 850 -400 Weight 84.277 kg General appearance: PRESENT: no acute distress, well-developed, well-nourished GI/Abdominal exam: PRESENT: normal bowel sounds, soft. ABSENT: distended, guarding, mass, organolmegaly, rebound, tenderness Result Laboratory Results: 02/26/17 12:48 02/26/17 12:48 Plan Discharge Plan: Home to complete a 10 day course of antibiotics. Keep the next visit in the office as planned. Time Spent: Less than 30 Minutes
--- NOTE | 2017-03-03 18:28 | HISTORY AND PHYSICAL E ---
History and Physical NAME: NANETTE JULIEN : 1995 AGE: 21Y ADMITTED: 02/26/2017 ROOM: 224 CHIEF COMPLAINT: Flank pain. HISTORY OF PRESENT ILLNESS: The patient is a G2, P0, now at 22 weeks estimated gestational age, who complains of a couple day history of dysuria and flank pain. The flank pain is mainly on her right side. She states that she had felt chills at home but no measured temperature and she did have one episode of nausea and vomiting on presentation to labor and delivery. PAST MEDICAL HISTORY: Unremarkable. FAMILY HISTORY: Noncontributory. HOME MEDICATIONS: vitamin tablets. SOCIAL HISTORY: The patient does not smoke, drink or use street drugs. PHYSICAL EXAMINATION: GENERAL: The patient appeared comfortable in no acute distress. VITAL SIGNS: Please see chart. heart tones are in the 150s on arrival. LUNGS: Clear to auscultation. ABDOMEN: There was some mild right CVA tenderness. The fundus was nontender. There was also some mild suprapubic tenderness. EXTREMITIES: Nontender. LABORATORY VALUES: White blood cell count was 12,000 on admission. Urinalysis showed 115 red blood cells and 19 white blood cells and only 10 squamous epithelial cells. Creatinine was normal. ASSESSMENT: This is a 21-year-old female with possible pyelonephritis versus kidney stone. PLAN: The patient was admitted and placed on IV antibiotics. She was given fluids and supportive care. Urine culture was sent. DICTATING PHYSICIAN: EVELIO COOPER M.D. [id number] [id number] ID: [id number] JOB#: [id number] ACCT: [id number] cc:EVELIO COOPER M.D. >
== END 2017-02-28 16:36 | disposition home or self-care (01) | DRG 781 ==
LOC: LC 09:33 → OBSVTOIN 12:30 → LR 12:30 → UNDOADMOB 12:44 → LR 15:30 → 2S 15:30 → UNDODISOB 02-28 16:36
PROVIDERS: ADMIT Specialist; ATTEND Specialist
PROC: 4A1HXCZ Monitoring of Products of Conception, Cardiac Rate, External Approach (ICD-10-PCS; principal; 2017-02-26)
DX: O23.02 Infections of kidney in pregnancy, second trimester (principal); O75.3 Other infection during labor; B95.1 Streptococcus, group B, as the cause of diseases classified elsewhere; Z3A.22 22 weeks gestation of pregnancy
CPT/HCPCS: 36415; 80048; 80307; 81001; 85025; 87086; 87088; J0690; J7120

== ENCOUNTER 2017-05-29 15:01 | Outpatient (CLI) | payer MEDICAID ==
[2017-05-29 15:58] LABS: AMORPHOUS SEDIMENT,URINE TRACE /HPF; APPEARANCE,URINE CLOUDY; BILIRUBIN,URINE NEGATIVE (NEGATIVE); GLUCOSE, URINE NEGATIVE (NEGATIVE); KETONES,URINE 80 mg/dL (NEGATIVE); LEUKOCYTE ESTERASE,URINE TRACE (NEGATIVE); NITRITE,URINE NEGATIVE (NEGATIVE); PROTEIN,URINE NEGATIVE (NEGATIVE); URINE SPECIFIC GRAVITY 1.017
[2017-05-29 16:08] LABS: URINE BARBITURATES SCREEN NEGATIVE; URINE METHADONE SCREEN NEGATIVE; URINE OPIATES LOW NEGATIVE; URINE PHENCYCLIDINE SCREEN NEGATIVE
== END 2017-05-29 16:23 | disposition home or self-care (01) ==
LOC: LC 15:01
PROVIDERS: ATTEND Student in an Organized Health Care Education/Training Program
PROC: 4A1HXCZ Monitoring of Products of Conception, Cardiac Rate, External Approach (ICD-10-PCS; principal; 2017-05-29)
DX: O36.8130 Decreased fetal movements, third trimester, not applicable or unspecified (principal); Z3A.34 34 weeks gestation of pregnancy
CPT/HCPCS: 59025; 81001; 80307; G0480 ×2

== ENCOUNTER 2017-06-23 13:27 | Outpatient (CLI) | payer MEDICAID ==
--- NOTE | 2017-06-23 13:33 | Non Stress Test Report ---
Non Stress Test Datetime Report Generated by CPN: 06/23/2017 13:33 DEMOGRAPHIC EGA NST: 34.6 INDICATION Indication for Study: Decreased Movement MONITORING Monitor Explained: Monitor Explained; Test Explained; Patient Verbalized Understanding Time on Monitor: 05/29/2017 15:32 Time off Monitor: 05/29/2017 16:15 NST Duration: 43 NST INTERVENTIONS NST Interventions: PO Hydration; Reposition Patient Physician Notified NST: PElie, CNM BABY A: [id number] BABY A Movement : Present Contraction Frequency : x2 FHR Baseline : 135 Accelerations : 15X15 Decelerations : None Variability : Moderate 6-25bpm NST Review: Meets Criteria for Reactive NST NST Review and Verified By : Josephine Leiva RNC NST Results: Reactive NST REPORT Report Trigger: Send Report
[2017-06-23 13:59] LABS: APPEARANCE,URINE CLOUDY; BILIRUBIN,URINE NEGATIVE (NEGATIVE); COLOR,URINE YELLOW; GLUCOSE, URINE NEGATIVE (NEGATIVE); KETONES,URINE NEGATIVE (NEGATIVE); LEUKOCYTE ESTERASE,URINE MODERATE (NEGATIVE); NITRITE,URINE NEGATIVE (NEGATIVE); PROTEIN,URINE NEGATIVE (NEGATIVE); URINE SPECIFIC GRAVITY 1.026; UROBILINOGEN,URINE NEGATIVE mg/dL (<2.0)
[2017-06-23 14:15] LABS: URINE AMPHETAMINES SCREEN NEGATIVE; URINE BARBITURATES SCREEN NEGATIVE; URINE BENZODIAZEPINES SCREEN NEGATIVE; URINE COCAINE SCREEN NEGATIVE; URINE METHADONE SCREEN NEGATIVE; URINE PHENCYCLIDINE SCREEN NEGATIVE
[2017-06-23 14:22] LABS: AMNISURE (ROM) NEGATIVE (NEGATIVE)
[2017-06-23 14:33] LABS: URINE MARIJUANA (THC) SCREEN UNCONFIRMED POSITIVE
--- NOTE | 2017-06-23 16:01 | Non Stress Test Report ---
Non Stress Test Datetime Report Generated by CPN: 06/23/2017 16:01 DEMOGRAPHIC EGA NST: 38.3 INDICATION Indication for Study: Other Indication for Study (NST) Other: lc MONITORING Monitor Explained: Monitor Explained; Test Explained; Patient Verbalized Understanding Time on Monitor: 06/23/2017 14:00 Time off Monitor: 06/23/2017 15:27 NST Duration: 87 NST INTERVENTIONS NST Interventions: PO Hydration; Reposition Patient Physician Notified NST: DR ANDREW BABY A Movement : Present Contraction Frequency : 7-9 FHR Baseline : 135 Accelerations : 15X15 Decelerations : None Variability : Moderate 6-25bpm NST Review: Meets Criteria for Reactive NST NST Review and Verified By : INDRA DAWKINS RN NST Results: Reactive NST REPORT Report Trigger: Send Report
== END 2017-06-23 15:47 | disposition home or self-care (01) ==
LOC: LC 13:27
PROVIDERS: ATTEND Obstetrics & Gynecology Gynecology
PROC: 4A1HXCZ Monitoring of Products of Conception, Cardiac Rate, External Approach (ICD-10-PCS; principal; 2017-06-23)
DX: O47.1 False labor at or after 37 completed weeks of gestation (principal); Z3A.38 38 weeks gestation of pregnancy
CPT/HCPCS: 59025; 84112; 81005; 80307; G0480 ×2

== ENCOUNTER 2017-07-01 17:46 | Outpatient (CLI) | payer MEDICAID ==
[2017-07-01 18:35] LABS: APPEARANCE,URINE SLIGHTLY-CLOUDY; BILIRUBIN,URINE NEGATIVE (NEGATIVE); COLOR,URINE YELLOW; GLUCOSE, URINE NEGATIVE (NEGATIVE); KETONES,URINE NEGATIVE (NEGATIVE); LEUKOCYTE ESTERASE,URINE NEGATIVE (NEGATIVE); NITRITE,URINE NEGATIVE (NEGATIVE); PROTEIN,URINE NEGATIVE (NEGATIVE); URINE SPECIFIC GRAVITY 1.023; UROBILINOGEN,URINE NEGATIVE mg/dL (<2.0)
[2017-07-01 18:43] LABS: AMNISURE (ROM) NEGATIVE (NEGATIVE)
[2017-07-01 18:52] LABS: URINE AMPHETAMINES SCREEN NEGATIVE; URINE BARBITURATES SCREEN NEGATIVE; URINE BENZODIAZEPINES SCREEN NEGATIVE; URINE COCAINE SCREEN NEGATIVE; URINE METHADONE SCREEN NEGATIVE; URINE PHENCYCLIDINE SCREEN NEGATIVE
[2017-07-01 18:55] LABS: URINE MARIJUANA (THC) SCREEN UNCONFIRMED POSITIVE
--- NOTE | 2017-07-01 19:57 | Non Stress Test Report ---
Non Stress Test Datetime Report Generated by CPN: 07/01/2017 19:56 DEMOGRAPHIC EGA NST: 39.4 INDICATION Indication for Study: Ordered by Provider; Other Indication for Study (NST) Other: LC MONITORING Monitor Explained: Monitor Explained; Test Explained; Patient Verbalized Understanding Time on Monitor: 07/01/2017 18:11 Time off Monitor: 07/01/2017 19:36 NST Duration: 85 NST INTERVENTIONS NST Interventions: PO Hydration; Reposition Patient Physician Notified NST: Dr Ivey BABY A: [id number] BABY A Movement : Present; Increased Contraction Frequency : 5-11 FHR Baseline : 140 Accelerations : 15X15 Decelerations : Early; Variable Variability : Moderate 6-25bpm NST Review: Meets Criteria for Reactive NST NST Review and Verified By : Raya Conde RN NST Results: Reactive NST REPORT Report Trigger: Send Report
== END 2017-07-01 19:50 | disposition home or self-care (01) ==
LOC: LC 17:46
PROVIDERS: ATTEND Obstetrics & Gynecology
PROC: 4A1HXCZ Monitoring of Products of Conception, Cardiac Rate, External Approach (ICD-10-PCS; principal; 2017-07-01)
DX: O76 Abnormality in fetal heart rate and rhythm complicating labor and delivery (principal); O47.1 False labor at or after 37 completed weeks of gestation; Z3A.39 39 weeks gestation of pregnancy
CPT/HCPCS: 59025; 84112; 81005; 80307; G0480 ×2

== ENCOUNTER 2017-07-06 01:32 | Inpatient (IN) | payer MEDICAID ==
[2017-07-06 02:15] LABS: BILIRUBIN,URINE NEGATIVE (NEGATIVE); COLOR,URINE YELLOW; GLUCOSE, URINE NEGATIVE (NEGATIVE); KETONES,URINE NEGATIVE (NEGATIVE); LEUKOCYTE ESTERASE,URINE TRACE (NEGATIVE); NITRITE,URINE NEGATIVE (NEGATIVE); PROTEIN,URINE NEGATIVE (NEGATIVE); URINE SPECIFIC GRAVITY 1.009; UROBILINOGEN,URINE NEGATIVE mg/dL (<2.0)
[2017-07-06 02:16] LABS: APPEARANCE,URINE SLIGHTLY HAZY
[2017-07-06 02:31] LABS: URINE AMPHETAMINES SCREEN NEGATIVE; URINE BARBITURATES SCREEN NEGATIVE; URINE BENZODIAZEPINES SCREEN NEGATIVE; URINE COCAINE SCREEN NEGATIVE; URINE MARIJUANA (THC) SCREEN NEGATIVE; URINE METHADONE SCREEN NEGATIVE; URINE PHENCYCLIDINE SCREEN NEGATIVE
[2017-07-06] MEDS ORDERED: PENICILLIN G POTASSIUM 5,000,000 UNIT in DEXTROSE 5%-WATER 100 ML IV ONE (04:14)
[2017-07-06] MEDS ORDERED: PENICILLIN G-K 5 MILLION UNIT VIAL ONE (04:40)
[2017-07-06] MEDS: RINGERS SOLUTION,LACTATED 1,000 ML IV PRN ×3 (04:47→08:55)
[2017-07-06 05:29] LABS: ABSOLUTE LYMPHOCYTES (AUTO) 2.5 10^3/uL (0.5-4.7); ABSOLUTE MONOCYTES (AUTO) 0.5 10^3/uL (0.1-1.4); ABSOLUTE NEUT (AUTO) 7.9 10^3/uL (1.7-8.2); BASOPHILS % (AUTO) 0.2 % (0-2); EOSINOPHILS % (AUTO) 0.3 % (0-6); HEMOGLOBIN 12.1 g/dL (12.0-15.5); LYMPHOCYTES % (AUTO) 22.7 % (13-45); MEAN CORPUSCULAR HEMOGLOBIN 31.8 pg (27.0-33.4); MEAN CORPUSCULAR HGB CONC 33.7 g/dL (32.0-36.0); MEAN CORPUSCULAR VOLUME 94 fl (80-97); MONOCYTES % (AUTO) 4.9 % (3-13); PLATELET COUNT 315 10^3/uL (150-450); RED BLOOD COUNT 3.82 10^6/uL (3.72-5.28); RED CELL DISTRIBUTION WIDTH 14.2 % (11.5-14.0); SEGMENTED NEUTROPHILS % (AUTO) 71.9 % (42-78); TOTAL CELLS COUNTED % (AUTO) 100 %
[2017-07-06] MEDS ORDERED: EPHEDRINE SULFATE INJ 50 MG/1 ML AMPULE ONE (06:12)
[2017-07-06] MEDS ORDERED: FENTANYL/BUPIVACAINE/NS/PF 0 MCG/0 ML RTUINJ EPI ONE (06:12)
[2017-07-06] MEDS ORDERED: BUPIVACAINE HCL 0.25 % INJ/PF (2.5 MG/1 ML) 30 ML VIAL ONE (06:12)
[2017-07-06] MEDS ORDERED: CEFAZOLIN 2 GM/D5W RTU 2 GM/50 ML RTUPB IV ONE (07:00)
[2017-07-06] MEDS ORDERED: PROPOFOL INJ 200 MG/20 ML VIAL IV ONE (07:11)
[2017-07-06] MEDS ORDERED: OXYTOCIN 10 UNIT/ML VIAL ONE (07:11)
[2017-07-06] MEDS ORDERED: MIDAZOLAM 2 MG/2 ML INJ ONE (07:12)
[2017-07-06] MEDS ORDERED: FENTANYL CITRATE INJ/PF 100 MCG/2 ML AMPUL ONE (07:12)
[2017-07-06] MEDS ORDERED: OXYTOCIN/NORMAL SALINE 20 UNIT/1,000 ML RTUINJ ONE ×2 (07:25→09:39)
[2017-07-06] MEDS ORDERED: PENICILLIN G-K 5 MILLION UNIT VIAL IV SCH (07:30)
[2017-07-06] MEDS ORDERED: FENTANYL CITRATE INJ/PF 100 MCG/2 ML AMPUL IV PRN ×3 (07:32)
[2017-07-06] MEDS ORDERED: OXYCODONE-ACETAMINOPHEN 5-325 MG TABLET PO PRN ×5 (07:32→09:20)
[2017-07-06] MEDS ORDERED: MEPERIDINE HCL/PF INJ 25 MG/1 ML DISP.SYRIN IV PRN (07:32)
[2017-07-06] MEDS ORDERED: PROMETHAZINE HCL INJ 25 MG/1 ML VIAL IV PRN ×4 (07:32→09:20)
[2017-07-06] MEDS ORDERED: MORPHINE SULFATE 10 MG/ML INJ IV PRN (07:32)
[2017-07-06] MEDS ORDERED: DIPHENHYDRAMINE HCL 50 MG/ML VIAL IV PRN (07:32)
[2017-07-06 07:41] LABS: ARTERIAL BLOOD BASE EXCESS -3.6 mmol/L; ARTERIAL BLOOD H2CO3 1.63 mmol/L (1.05-1.35); ARTERIAL BLOOD HCO3 24.1 mmol/L (20-26); ARTERIAL BLOOD PCO2 54.3 mmHg (35-45); ARTERIAL BLOOD PH 7.27 (7.35-7.45); ARTERIAL BLOOD TOTAL CO2 25.8 mmol/L (21-25)
[2017-07-06 07:45] LABS: ARTERIAL BLOOD FIO2 CORD BLOOD; ARTERIAL BLOOD PO2 11.1 mmHg (80-100)
--- NOTE | 2017-07-06 08:08 | Operative Report ---
Operative Report DATE OF SURGERY: 07/06/17 PREOPERATIVE DIAGNOSIS: Intrauterine at 40.2 days. Respiratory Depression. High Spinal Anesthesia. Emergency section POSTOPERATIVE DIAGNOSIS: Intrauterine at 40.2 days. Respiratory Depression. High Spinal Anesthesia. Emergency section OPERATION: Primary Low Transverse Section via Pfannenstiel skin incision SURGEON: MOR BROWNE 1ST OIL TRANSPORT DRIVER: KATERINE BRADLEY 2ND Purchasing Department Clerk: ZHANG GUILLAUME ANESTHESIA: GA TISSUE REMOVED OR ALTERED: Specimens. 1. pH. 2. Cord Blood sample. 3. Placenta COMPLICATIONS: Respiratory Depression due to High Spinal Anesthesia ESTIMATED BLOOD LOSS: 500 ml INTRAOPERATIVE FINDINGS: Normal appearing uterus, ovaries - left with small simple cyst, normal fallopian tubes bilaterally. PROCEDURE: Patient was taken to the operating room due to high spinal anesthesia. Patient received 2 g of Ancef had sequential compression devices in place as well as Bourne catheter in place. Her abdomen was prepped with ChloraPrep and she was sterilely draped. General anesthesia induction was obtained. A timeout procedure was performed. At this point a low transverse skin incision was made with scalpel carried underlying fascia nicked in the midline and extended laterally bilaterally. The fascial incisions were extended superiorly and inferiorly. The rectus muscles were divided in the midline the peritoneum was entered digitally bluntly. This was then extended superiorly and inferiorly. The bladder blade was inserted. Bladder flap was developed and the bladder blade re-inserted above this. At this point a low transverse hysterotomy was made small amount of clear amniotic fluid was noted. head was delivered without any nuchal cord noted. The rest of the infant delivered without any difficulty. The cord was doubly clamped and cut. If it had not awaiting resuscitation staff. PH as well as cord blood samples were taken for placenta. Placenta was then manually extracted. Uterus was exteriorized and cleared of all clots and debris. At this point hysterotomy was then closed using 0 Vicryl CT1 in a running locked fashion. A second imbricating layer was then made to achieve further hemostasis. At the left uterine angle and [id number] suture was also placed to help achieve further hemostasis. Posterior cul-de- sac was then cleared of all clots and debris. The uterus was then returned to the abdomen without any difficulty. The bilateral gutters were then cleared. Hemostasis was noted along the hysterotomy site. Inspection of the bladder as well as the fascial incision was noted to be intact. At this point attention towards closure of the fascial incision which used 0 Vicryl CT1 in a running fashion. The subcutaneous layer was then copiously irrigated. Any signs of bleeding were Bovie cauterized. Subcutaneous layer was then closed using Vicryl in a running fashion. Skin was then closed using 3-0 Vicryl on an SH in a subcuticular fashion. The skin was then further closed with Dermabond. Clean bandage dressing was then applied. At this point the procedure to complete all sponge Lap counts instruments and needles were correct 2.
[2017-07-06] MEDS ORDERED: PENICILLIN G POTASSIUM 2,500,000 UNIT in DEXTROSE 5%-WATER 50 ML IV SCH (08:15)
[2017-07-06] MEDS ORDERED: KETOROLAC TROMETHAMINE INJ/PF 30 MG/1 ML SDV ONE (08:59)
[2017-07-06] MEDS ORDERED: MORPHINE SULFATE 10 MG/ML INJ ONE (09:00)
[2017-07-06] MEDS ORDERED: ACETAMINOPHEN 325 MG TABLET PO PRN ×2 (09:07→09:20)
[2017-07-06] MEDS ORDERED: MEASLES,MUMPS&RUBELLA VACC/PF 0.5 ML VIAL SUBCUT PRN ×2 (09:07→09:20)
[2017-07-06] MEDS ORDERED: OXYTOCIN/NORMAL SALINE 20 UNIT/1,000 ML RTUINJ IV PRN ×2 (09:07→09:20)
[2017-07-06] MEDS ORDERED: SIMETHICONE 80 MG TAB.CHEW PO PRN ×2 (09:07→09:20)
--- NOTE | 2017-07-06 09:12 | Delivery Summary ---
Del Sum A-C Datetime Report Generated by CPN: 07/06/2017 09:12 DELIVERY PERSONNEL DELIVERY PERSONNEL: [id number] Delivery Doctor:: Liz Billings Anesthesiologist:: Miladis Segovia MD 1ST PRESSMAN ON [employer] PRESS:: Ricky Guo CRNA Labor and Delivery Nurse:: ROXANA Anderson (Annotations: Data stored by [facility] on behalf of user) Labor and Delivery Nurse:: Lori Ortega RN Neonatal Nurse Practitioner:: ELI Glez Nursery Nurse:: Oma Beltran RN Commercial Loan Reviewer/WIRE DRAWER: [employer] Commercial Loan Reviewer/WIRE DRAWER: Tuna Gunter CST Additional Personnel: : [employer] S[employer] PSYCHOLOGIST ASSISTANT MATERNAL INFORMATION Delivery Anesthesia: Spinal Medications After Delivery: Pitocin Drip 20 Units/1000ml NSS Estimated Blood Loss (ml): 500 Maternal Complications: Other Other Maternal Complications: High Spinal Anesthesia LABOR SUMMARY EDC: 07/04/2017 00:00 No. Babies in Womb: 0 Attempted: No Labor Anesthesia: high spinal LABOR INFORMATION Reason for Induction: Not Applicable; Other Oxytocin: N/A Group B Beta Strep: positive Antibiotics # of Doses: 1 Antibiotics Time of Last Dose: 0435 Name of Antibiotic Given: Penicillin/ancef for c/s Steroids Given: None Reason Steroids Not Administered: Not Applicable MEMBRANES Membranes Rupture Method: Artificial Rupture of Membranes: 07/06/2017 07:11 Length of Rupture (hr): 0.02 Amniotic Fluid Color: Clear Amniotic Fluid Amount: Moderate Amniotic Fluid Odor: None STAGES OF LABOR Stage 3 hr: 0 Stage 3 min: 2 CSECTION DELIVERY Primary Indication: Other Other Primary Indication: Respiratory Depression- High Spinal Anesthesia CSection Urgency: Emergency CSection Incidence: Primary Labor: Labor Elective: N/A CSection Incision: Lower Uterine Transverse Uterine Closure: Double-layer closure BABY A INFORMATION Delivery Date/Time: 07/06/2017 07:12 Method of Delivery: Vaginal Born in Route : No : N/A Forceps: N/A Vacuum Extraction: N/A Shoulder Dystocia : Yes PRESENTATION/POSITION BABY A Presentation: Cephalic Cephalic Presentation: Vertex Vertex Position: Left Occipital Anterior Breech Presentation: N/A PLACENTA INFORMATION BABY A Placenta Delivery Time : 07/06/2017 07:14 Placenta Method of Delivery: Manual Removal Placenta Status: Delivered SCORES BABY A Heart Rate 1 min: >100 bpm Resp Effort 1 min: Good Cry Reflex Irritability 1 min: Cough or Sneeze or Pulls Away Muscle Tone 1 min: Some Flexion of Extremities Color 1 min: Blue/Pale SCORE 1 MIN: 7 Heart Rate 5 min: >100 bpm Resp Effort 5 min: Good Cry Reflex Irritability 5 min: Cough or Sneeze or Pulls Away Muscle Tone 5 min: Some Flexion of Extremities Color 5 min: Body [place], Extremities Blue SCORE 5 MIN: 8 INFANT INFORMATION BABY A Gestational Age at Delivery: 40.2 Gestational Status: Full Term- 39- 40.6 Weeks Outcome : Liveborn Infant Condition : Stable Sex: Male IDENTIFICATION BABY A Verification Date/Time: 07/06/2017 09:09 ID Band Number: [id number] Mother's Name Verified: Yes RN Verifying : B Baidy RN Additional Verifying Personnel: [facility] WEIGHT/LENGTH BABY A Infant Birthweight (gm): 3390 Weight (lb): 7 Weight (oz): 8 Infant Length (in): 20.00 Length (cm): 50.80 CORD INFORMATION BABY A No. Cord Vessels: 3 Nuchal Cord : N/A Cord Blood Taken: Yes-For Eval (Mom's Blood Type - or O+) Suction: Mouth; Nose ASSESSMENT BABY A Complications: None Physical Findings at Delivery: Within Normal Limits SIGNATURES Signature: with User ID: [email or web address]
[2017-07-06] MEDS ORDERED: ACETAMINOPHEN 100 ML IV ONE (09:17)
[2017-07-06] MEDS ORDERED: DIPH/PERTUSS(ACELL)/TETANUS VAC/PF 0.5 ML SYR (>=10YO) IM PRN (09:20)
--- NOTE | 2017-07-06 09:45 | Admission Physical ---
Datetime Report Generated by CPN: 07/06/2017 09:45 CURRENT ADMISSION Chief Complaint: Uterine Contractions Chief Complaint: Other Chief Complaint Other: contractions Indication for Induction: Postterm Indication for Induction: Term, Intrauterine Indication for Induction: Medical Complication Indication for Induction- Other: 40.2 weeks by EDC of 07/04/2017 Admit Impression- Other: concern for high spinal anesthesia Admit Impression- Other: pyelonephritis vs. kidney stones Admit Plan: Admit to Unit; Initiate Labor Protocol Admit Plan: Admit to Unit Admit Plan- Other: Plan for urgent C section ALLERGIES Medication Allergies: No Medication Allergies: latex/MO (07/06/2017); nye/MO (07/06/2017) Medication Allergies: latex (07/01/2017); nye (07/01/2017) Medication Allergies: latex (06/23/2017); nye (06/23/2017) Medication Allergies: latex (04/28/2017); nye (04/28/2017) Medication Allergies: latex (02/26/2017); nye (02/26/2017) Medication Allergies: latex (02/16/2017); nye (02/16/2017) Medication Allergies: latex (09/09/2011) Latex: Latex Allergies Food Allergies: Nye - swelling Environmental Allergies: none OBSTETRICAL HISTORY EDC: 07/04/2017 00:00 : 2 Para: 1 Term: 1 : 0 SAB: 0 IAB: 0 Ectopic: 0 Livin Cesareans: 0 VBACs: 1 Multiple Births: 0 Gestational Diabetes: No Rh Sensitization: No Incompetent Cervix: No LORNE: No Infertility: No ART Treatment: No Uterine Anomaly: No IUGR: No Hx Previous C/S: No Macrosomia: No Hx Loss/Stillborn: No PIH: No Hx : No Placenta Previa/Abruption: No Depression/PP Depression: No PTL/PROM: No Post Hemorrhage: Yes Current Procedures: Ultrasound; NST Obstetrical History Comments: G1- 2013, 42 weeks, male, vaginal delivery with vacuum assist after 3-4 hours pushing, 2nd degree laceration, 8lb 2oz, 37 hours in labor, PPH did not require blood transfusion g2-current , positive marijuana, positive chlamydia SEE RECORDS Alcohol: No Marijuana : Yes Marijuana Comments: positive several times in Cocaine: No Other Illicit Drugs: No Cigarettes: Never Smoker. [id number] MEDICAL HISTORY Diabetes: No Blood Transfusion: No Pulmonary Disease (Asthma, TB): No Breast Disease: No Hypertension: No Corrugator Supervisor Surgery: No Heart Disease: No Hosp/Surgery: Yes Autoimmune Disorder: No Anesthetic Complications: No Kidney Disease: Yes Abnormal Pap Smear: No Neuro/Epilepsy: No Psychiatric Disorders: No Other Medical Diseases: No Hepatitis/Liver Disease: No Significant Family History: No Varicosities/Phlebitis: No Trauma/Violence : No Thyroid Dysfunction: No Medical History Comments: CHILDBIRTH x 1, marijuana usage, obesity INFECTIOUS HISTORY Gonorrhea: No Genital Herpes: No Chlamydia: Yes Tuberculosis: No Syphilis: No Hepatitis: No HIV/AIDS Exposure: No Rash or Viral Illness: No HPV: No Infectious History Comments: chlamydia 2017 PHYSICAL EXAM General: Abnormal General: Normal HEENT: Normal HEENT: Normal Neurologic: Normal Neurologic: Normal Thyroid: Deferred Thyroid: Normal Heart: Normal Heart: Normal Lungs: Abnormal Lungs: Normal Breast: Deferred Breast: Normal Back: Normal Back: Abnormal Abdomen: Normal Abdomen: Normal Genitourinary Exam: Deferred Genitourinary Exam: Abnormal Extremities: Normal Extremities: Normal DTRs: Abnormal DTRs: Normal Pelvic Type: Adequate Pelvic Type: Adequate Physical Exam Comments: Patient at bedside with ambubag and anesthesia. Patient given high spinal/epidural. Physical Exam Comments: right sided cvat suprapubic tenderness dysuria Vital Signs: Reviewed Details Vital Signs: s/p epidural - high - anesthesia at bedside. MEMBRANES Membranes: Intact FETUS A EGA: 40.2 EGA: 21.5 Monitoring: External US Monitoring: External US FHR- Baseline: 140 Variability: Moderate 6-25bpm Decelerations: Variable FHR Category: Category I Admit Comment: Plan for C section due to high spinal Admit Comment: 21 yo presents with back pain vomiting today +dysuria VSS obesity Pyelonephritis vs. Kidney stones PPh- no transfusion urine culture UA- WBC 19, RBC 119 admit to 2nd floor for observation pain management CBC, BMP strain all urine Dr. Neilsen at bedside poc reviewed with pt. PLANS FOR LABOR AND DELIVERY Labor and Delivery: None Pain Management: Epidural Feeding Preference: Breast Benefit of Breast Feed Discussed: Yes Circumcision: Yes INFORMED CONSENT Informed Consent Obtained: Risks, Benefits and Alternatives Discussed Assignment: Lisette Cain MD Signature: with User ID: [email or web address] Signature: with User ID: [email or web address] : with User ID: Callum : with User ID: [email or web address]
[2017-07-06] MEDS ORDERED: PRENATAL VITAMIN W DHA CAPSULE PO SCH ×2 (10:00)
[2017-07-06] MEDS ORDERED: DOCUSATE SODIUM 100 MG CAPSULE PO SCH (10:00)
[2017-07-06] MEDS: DOCUSATE SODIUM 100 MG CAPSULE PO SCH ×2 (10:43→17:04)
[2017-07-06] MEDS: PRENATAL VITAMIN W DHA CAPSULE PO SCH (10:43)
[2017-07-06] MEDS: OXYCODONE-ACETAMINOPHEN 5-325 MG TABLET PO PRN (10:54)
[2017-07-06] MEDS: IBUPROFEN 800 MG TABLET PO SCH ×3 (12:00→23:47)
[2017-07-06] MEDS: KETOROLAC TROMETHAMINE INJ/PF 30 MG/1 ML SDV IV SCH ×2 (15:06→21:35)
[2017-07-06] MEDS ORDERED: NORMAL SALINE 1000 ML 1,000 ML IV ONE (16:23)
[2017-07-06] MEDS ORDERED: NALBUPHINE HCL INJ 10 MG/1 ML AMPULE IV PRN (16:24)
[2017-07-06] MEDS: NORMAL SALINE 1000 ML 1,000 ML IV PRN ×2 (17:04→21:36)
[2017-07-07] MEDS: OXYCODONE-ACETAMINOPHEN 5-325 MG TABLET PO PRN (01:09)
[2017-07-07] MEDS: NORMAL SALINE 1000 ML 1,000 ML IV PRN (01:13)
[2017-07-07] MEDS ORDERED: NORMAL SALINE 1000 ML 1,000 ML IV PRN (04:00)
[2017-07-07] MEDS: KETOROLAC TROMETHAMINE INJ/PF 30 MG/1 ML SDV IV SCH (05:31)
[2017-07-07] MEDS: IBUPROFEN 800 MG TABLET PO SCH ×3 (05:32→17:48)
[2017-07-07 07:38] LABS: HEMATOCRIT 23.7 % (36.0-47.0); MEAN CORPUSCULAR HEMOGLOBIN 32.5 pg (27.0-33.4); MEAN CORPUSCULAR HGB CONC 33.8 g/dL (32.0-36.0); MEAN CORPUSCULAR VOLUME 96 fl (80-97); PLATELET COUNT 249 10^3/uL (150-450); RED BLOOD COUNT 2.46 10^6/uL (3.72-5.28); RED CELL DISTRIBUTION WIDTH 14.4 % (11.5-14.0); WHITE BLOOD COUNT 12.4 10^3/uL (4.0-10.5)
--- NOTE | 2017-07-07 10:01 | PDOC PROGRESS REPORT ---
Subjective-OB Subjective: Post Delivery Day: 22 year old. Denies any needs at this time. reports formula feeding, pain controlled with current meds, tolerating diet, passing gas, bleeding small. Physical Exam (OB) Vital Signs: Temp Pulse Resp BP Pulse Ox 98.5 F 113 H 17 119/65 98 07/07/17 08:52 07/07/17 08:52 07/07/17 08:52 07/07/17 08:52 07/07/17 08:52 Intake & Output 07/06/17 07/07/17 07/08/17 06:59 06:59 06:59 Intake Total 2990 Output Total 1750 Balance 1240 Weight 89 kg - PIH/Pre-Eclampsia Clonus: Negative - Incision: Open, Well Approximated Closure Type: Surgical Glue - Abdomen Description: Soft, Round Hernia Present: No Fundal Description: Firm, Midline Fundal Height: u/u - u/2 - Abdominal Inspection: Normal Tenderness: Nontender - Extremities Lower extremities: Himanshu's sign - neg Calf: Normal, Nontender Objective-Diagnostic Laboratory: 07/07/17 06:56 07/07/17 06:56 WBC 12.4 H RBC 2.46 L Hgb 8.0 L D Hct 23.7 L MCV 96 MCH 32.5 MCHC 33.8 RDW 14.4 H Plt Count 249 Assessment and Plan(PN) - Assessment and Plan (1) delivery delivered Is this a current diagnosis for this admission?: Yes - Time Spent with Patient Time with patient: Less than 15 minutes - Disposition Anticipated Discharge: Home Within: within 24 hours
[2017-07-07] MEDS: DOCUSATE SODIUM 100 MG CAPSULE PO SCH ×2 (10:28→17:48)
[2017-07-07] MEDS: PRENATAL VITAMIN W DHA CAPSULE PO SCH (10:28)
[2017-07-07] MEDS ORDERED: SUCCINYLCHOLINE CHLORIDE INJ 200 MG/10 ML VIAL ONE (12:07)
[2017-07-08] MEDS: IBUPROFEN 800 MG TABLET PO SCH ×3 (06:54→11:52)
[2017-07-08] MEDS: PRENATAL VITAMIN W DHA CAPSULE PO SCH (09:30)
[2017-07-08] MEDS: DOCUSATE SODIUM 100 MG CAPSULE PO SCH (09:30)
[2017-07-08 13:05] VITALS: BP 115/64
--- NOTE | 2017-07-08 13:22 | PDOC DISCHARGE SUMMARY ---
Final Diagnosis Discharge Date: 07/08/17 - Final Diagnosis (1) Acute blood loss anemia Is this a current diagnosis for this admission?: Yes (2) delivery delivered Is this a current diagnosis for this admission?: Yes (3) Respiratory depression Is this a current diagnosis for this admission?: Yes Discharge Data - Discharge Medication Prescriptions: Oxycodone HCl/Acetaminophen [Percocet 5-325 mg Tablet] 1 tab PO Q4HP PRN #20 tablet PRN Reason: Ibuprofen [Motrin 800 mg Tablet] 800 mg PO Q8HP PRN #60 tablet PRN Reason: Docusate Sodium [Colace 100 mg Capsule] 100 mg PO BID #60 capsule Ferrous Sulfate [Feosol 325 mg Tablet] 325 mg PO TID #180 tablet Home Medications: Pnv with Ca,No.72/Iron/FA [ Plus Tablet] 1 tab PO DAILY 07/09/13 Docusate Sodium [Colace 100 mg Capsule] 100 mg PO BID #60 capsule 07/08/17 Ferrous Sulfate [Feosol 325 mg Tablet] 325 mg PO TID #180 tablet 07/08/17 Ibuprofen [Motrin 800 mg Tablet] 800 mg PO Q8HP PRN #60 tablet 07/08/17 Oxycodone HCl/Acetaminophen [Percocet 5-325 mg Tablet] 1 tab PO Q4HP PRN #20 tablet 07/08/17 Reason(s) for Admission: Onset of Labor Procedures: NST, Ultrasound Intrapartum Procedure(s): : Low Cervical, Transverse - Diagnosis Test Laboratory: Temp Pulse Resp BP Pulse Ox 98.3 F 103 H 16 124/63 100 07/08/17 09:39 07/08/17 09:39 07/08/17 09:39 07/08/17 09:39 07/08/17 09:39 07/06/17 07/06/17 07/07/17 01:37 05:04 06:56 RBC 3.82 2.46 L Hgb 12.1 8.0 L D Hct 36.0 23.7 L Urine Opiates Screen NEGATIVE - Discharge information/Instructions Discharge Activity: Activity As Tolerated, Balance Activity w/Rest, No Driving, No Lifting Over 10 Pounds, No Lifting/Push/Pulling, Pelvic Rest, Slowly Increase Activity, No tub bath, Walk Frequently Discharge Diet: Regular Disposition: HOME, SELF-CARE Follow up with: [facility] in: 1, Weeks - incision check
== END 2017-07-08 14:47 | disposition home or self-care (01) | DRG 765 ==
LOC: LC 01:32 → LR 04:15 → 2S 09:43
PROVIDERS: ADMIT Obstetrics & Gynecology; ATTEND Obstetrics & Gynecology
PROC: 10D00Z1 Extraction of Products of Conception, Low, Open Approach (ICD-10-PCS; principal; 2017-07-06)
PROC: 4A1HXCZ Monitoring of Products of Conception, Cardiac Rate, External Approach (ICD-10-PCS; 2017-07-06)
DX: O99.513 Diseases of the respiratory system complicating pregnancy, third trimester (principal); D62 Acute posthemorrhagic anemia; O99.824 Streptococcus B carrier state complicating childbirth; O99.02 Anemia complicating childbirth; O48.0 Post-term pregnancy; O99.214 Obesity complicating childbirth; G93.89 Other specified disorders of brain; E66.9 Obesity, unspecified; Z68.33 Body mass index [BMI] 33.0-33.9, adult; O34.83 Maternal care for other abnormalities of pelvic organs, third trimester; N83.202 Unspecified ovarian cyst, left side; F12.90 Cannabis use, unspecified, uncomplicated; O99.324 Drug use complicating childbirth; O74.6 Other complications of spinal and epidural anesthesia during labor and delivery; Z28.21 Immunization not carried out because of patient refusal; Z91.040 Latex allergy status; Z3A.40 40 weeks gestation of pregnancy; Z37.0 Single live birth
CPT/HCPCS: 1961; 36415; 80307; 81005; 82803; 85025; 85027; 86592; 86850; 86900; 86901; 88307; 94760; 94799; J0131; J0330; J0690; J1885; J2250; J2270; J2540; J2590; J2704; J3010; J3490; J7030